=== PATIENT | male | born 1990 | race Caucasian/White ===

== ENCOUNTER → 2019-01-16 | Outpatient (CLI) | payer MEDICARE, OTHER ==
--- NOTE | 2019-01-16 14:58 | KCIC ---
MR of the right index finger HISTORY: Injury 5 days ago at the PIP joint after a fall. Second PIP joint pain. TECHNIQUE: Routine multiplanar sequences are obtained through the index finger. COMPARISON: None FINDINGS: Mild subchondral marrow edema signal at the anterior base of the middle second phalanx. No definite fracture line. Flexor and extensor tendons are intact. No significant tendon sheath fluid. No acute collateral ligamentous disruption. No significant joint effusion. IMPRESSION: Subchondral marrow contusion at the anterior base of the middle second phalanx. No definite or displaced fracture, but an actual fracture might be better detected with radiographs. Electronically signed by: Hero Acuna MD (01/16/2019 2:55 PM) [id number]
== END | disposition home or self-care (01) ==
LOC: KCIC MRI 11:51
PROVIDERS: ATTEND Nurse Practitioner Family
DX: S60.021A Contusion of right index finger without damage to nail, initial encounter (principal); W19.XXXA Unspecified fall, initial encounter; Y93.89 Activity, other specified; Y92.89 Other specified places as the place of occurrence of the external cause; Y99.8 Other external cause status
CPT/HCPCS: 73218